=== PATIENT | female | born 1995 | race Caucasian/White ===

== ENCOUNTER 2018-10-28 23:07 | Emergency (ER) | payer MEDICAID ==
[~2018-10-28] VITALS: Ht 160 cm; Wt 79.4 kg
[2018-10-28 23:11] VITALS: Ht 160 cm; Wt 79.4 kg
--- NOTE | 2018-10-28 23:51 | ERD ---
ER Documentation Chief Complaint Chief Complaint PT reports 7 weeks and VB tonight HPI Patient is a 23-year-old female, G2, P1, approximately 7 weeks , presents the ER with vaginal spotting which started 1 hour ago. She denies any pad usage or clot passage. Patient states her [employer] PROFESSION[employer] is at [facility]. Last mental period was on August 08, 2018. Patient denies any dizziness or lightheadedness. Patient denies any fevers, chills, lower abdominal pain. ROS All systems reviewed and are negative except as per history of present illness. Allergies Allergies: Coded Allergies: No Known Allergy (Unverified , 10/28/18) PMhx/Soc History of Surgery: Yes () Hx Alcohol Use: No Hx Substance Use: No Hx Tobacco Use: No Smoking Status: Never smoker FmHx Family History: No diabetes Physical Exam Vitals Vital Signs Date Temp Pulse Resp B/P (MAP) Pulse Ox O2 O2 Flow FiO2 Time Delivery Rate 10/28/18 98.3 20 16 124/74 100 23:11 (91) Physical Exam GENERAL: Well-developed, well-nourished female. Appears in no acute distress. HEAD: Normocephalic, atraumatic. EYES: Pupils are equally reactive bilaterally. EOMs grossly intact. No conjunctival erythema. NECK: Supple. No meningismus. Normal range of motion of the neck. LUNG: Clear to auscultation bilaterally. No rhonchi, wheezing, rales or coarse breath sounds. HEART: Regular rate and rhythm. No murmurs, rubs or gallops. ABDOMEN: No scars, ecchymosis or rashes noted. Soft, nontender, and nondistended. Positive bowel sounds in all four quadrants. No rebound tenderne ss, no guarding. (-) McBurney's point tenderness. No CVA tenderness. EXTREMITIES: Equal pulses bilaterally. No peripheral clubbing, cyanosis or edema. No unilateral leg swelling. NEUROLOGIC: Alert and oriented. Moving all four extremities without any difficulty. Normal speech. Steady gait. SKIN: Normal color. Warm and dry. No rashes or lesions. Result Diagram: 10/28/18 2349 Results 24 hrs Laboratory Tests Test 10/28/18 23:49 White Blood Count 10.0 10^3/ul Red Blood Count 4.53 10^6/ul Hemoglobin 14.7 g/dl Hematocrit 42.4 % Mean Corpuscular Volume 93.6 fl Mean Corpuscular Hemoglobin 32.5 pg Mean Corpuscular Hemoglobin Concent 34.7 g/dl Red Cell Distribution Width 12.3 % Platelet Count 254 10^3/UL Mean Platelet Volume 11.4 fl Immature Granulocytes % 0.200 % Neutrophils % 64.6 % Lymphocytes % 26.8 % Monocytes % 5.9 % Eosinophils % 2.2 % Basophils % 0.3 % Nucleated Red Blood Cells % 0.0 /100WBC Immature Granulocytes # 0.020 10^3/ul Neutrophils # 6.5 10^3/ul Lymphocytes # 2.7 10^3/ul Monocytes # 0.6 10^3/ul Eosinophils # 0.2 10^3/ul Basophils # 0.0 10^3/ul Nucleated Red Blood Cells # 0.0 10^3/ul Urine Color YELLOW Urine Clarity SLIGHTLY CLOUDY Urine pH 6.0 Urine Specific [place] 1.004 Urine Ketones NEGATIVE mg/dL Urine Nitrite NEGATIVE mg/dL Urine Bilirubin NEGATIVE mg/dL Urine Urobilinogen NEGATIVE mg/dL Urine Leukocyte Esterase NEGATIVE Julia/ul Urine Microscopic RBC 10 /HPF Urine Microscopic WBC 2 /HPF Urine Squamous Epithelial Cells FEW /HPF Urine Amorphous Crystals FEW /HPF Urine Bacteria FEW /HPF Urine Hemoglobin 3+ mg/dL Urine Glucose NEGATIVE mg/dL Urine Total Protein NEGATIVE mg/dl Beta HCG, Quantitative 810698.0 mIU/ml Procedures/MDM ED COURSE: The patient was stable throughout ED course. I kept the patient and/or family informed of laboratory and diagnostic imaging results throughout the ED course. DIAGNOSTIC IMAGING: Read by radiologist. Patient: SAKSHI FUNES : 1995 Age: 23 Sex: F MR #: [id number] DOS: 10/28/18 2343 Ordering MD: ROSIE KO PA-C Location: [facility] Room/Bed: PROCEDURE: US OB. CLINICAL INDICATION: , vaginal spotting. TECHNIQUE: Multiple sonographic images of the pelvis were obtained. Transabdominal views of the pelvis are available for review. The images were reviewed on a PACS workstation. COMPARISON: No prior studies are available for comparison. FINDINGS: There is a single intrauterine . The mean gestational sac diameter measures 2.74 cm, corresponding to a 1-evnr-6-day . The crown-rump length equals 1.09 cm which corresponds to a 4-oosz-4-day gestational age by ultrasound criteria. cardiac activity measures 132 bpm. No subchorionic hemorrhage is identified. The ovaries are not visualized. The adnexa are unremarkable. There is no free pelvic fluid. IMPRESSION: Single live intrauterine gestation of approximately 7 weeks 3 days. The estimated date of delivery is 06/13/2019. RPTAT: HTAR .Antony Holloway MD, Date Time Electronically viewed and signed by .Antony Holloway MD, on 10/29/2018 01:58 .R/ CC: ROSIE KO PA-C [id number] PROCEDURES: None. Medical Decision Making: This is a 23-year-old female, G2, P1, approximately 7 weeks , presents the ER for concerns of vaginal spotting x1 hour. Vital signs were reviewed. Patient is afebrile. Patient is hemodynamically stable. Urine test was positive. Quantitative b-HCG was 202293. CBC showed no evidence of systemic infection or severe anemia. She was noted to be O+, no indication for RhoGam today. UA was negative for acute infection. Pelvic ultrasound showed intrauterine live gestation of 7 weeks 1 day. Given these findings, the patients presentation is most consistent with threatened . I have a much lower clinical concern for ectopic , ruptured ectopic , molar , subchorionic hematoma, spontaneous , incomplete , complete , missed , placental abruption, placental previa, vasa previa, uterine rupture, anembyronic . Prescriptions: None Discharge: At this time, patient is stable for discharge and outpatient management. I had a conversation at length with the patient about the concerns of vaginal bleeding during the 1st trimester of . Patient and/or family understands that her vaginal bleeding can be a normal finding or a sign of miscarriage. I have instructed the patient to follow-up with her OBGYN or return here 2 days for further monitoring. I have instructed the patient to promptly return to the ER a t any time for any new or worsening symptoms including increased pain, nausea, vomiting, continued bleeding, weakness, syncope or fever. The patient and/or family expressed understanding of and agreement with this plan. All questions were answered. Home care instructions were provided. Disclaimer: Inadvertent spelling and grammatical errors are likely due to EHR/dictation software use and do not reflect on the overall quality of patient care. Also, please note that the electronic time recorded on this note does not necessarily reflect the actual time of the patient encounter. Departure Diagnosis: Primary Impression: Vaginal bleeding affecting early Condition: Fair Patient Instructions: Vaginal Bleed in Referrals: [facility] YOU HAVE RECEIVED A MEDICAL SCREENING EXAM AND THE RESULTS INDICATE THAT YOU DO NOT HAVE A CONDITION THAT REQUIRES URGENT TREATMENT IN THE EMERGENCY DEPARTMENT. FURTHER EVALUATION AND TREATMENT OF YOUR CONDITION CAN WAIT UNTIL YOU ARE SEEN IN YOUR DOCTORS OFFICE WITHIN THE NEXT 1-2 DAYS. IT IS YOUR RESPONSIBILITY TO MAKE AN APPOINTMENT FOR FOLOW-UP CARE. IF YOU HAVE A PRIMARY DOCTOR --you should call your primary doctor and schedule an appointment IF YOU DO NOT HAVE A PRIMARY DOCTOR YOU CAN CALL OUR PHYSICIAN REFERRAL HOTLINE AT IF YOU CAN NOT AFFORD TO SEE A PHYSICIAN YOU CAN CHOSE FROM THE FOLLOWING [facility] [address] [facility]. [facility] [address] [facility]. [place] [address] [facility] [address]. [facility] [address] [facility]. [employer] [facility] [address] [facility]. [facility] YOU HAVE RECEIVED A MEDICAL SCREENING EXAM AND THE RESULTS INDICATE THAT YOU DO NOT HAVE A CONDITION THAT REQUIRES URGENT TREATMENT IN THE EMERGENCY DEPARTMENT. FURTHER EVALUATION AND TREATMENT OF YOUR CONDITION CAN WAIT UNTIL YOU ARE SEEN IN YOUR DOCTORS OFFICE WITHIN THE NEXT 1-2 DAYS. IT IS YOUR RESPONSIBILITY TO MAKE AN APPOINTMENT FOR FOLOW-UP CARE. IF YOU HAVE A PRIMARY DOCTOR --you should call your primary doctor and schedule and appointment IF YOU DO NOT HAVE A PRIMARY DOCTOR YOU CAN CALL OUR PHYSICIAN REFERRAL HOTLINE AT . IF YOU CAN NOT AFFORD TO SEE A PHYSICIAN YOU CAN CHOSE FROM THE FOLLOWING [facility] INSTITUTIONS: [facility] [address] [place] [address] [facility] [address] [place] [address] [facility] [address] [place] [address] [employer]AL [place] [address] [facility] [address] [place] [address] OFFICE FAX , [facility] [address] [place], [place] [id number], [place] [address] [place] [address] [address] MARCUM, [facility] [address] [id number] [address] [facility] [address] [place] [address] [facility] [address] [place] [address] [address] [facility] [address] - [address] [facility] [address] [address], [place] [address] [facility]. [address], [facility] [address] [address], [place] [address] [place], [place] [id number] Additional Instructions: Recheck ramirez hormonas en dos tripp. Llame al doctor MAANA y leni eloina AUSTYN PARA DENTRO DE 1-2 TRIPP.Dgale a la secretaria que nosotros le instruimos hacer esta austyn.Avise o llame si ramirez condicin se empeora antes de la austyn. Regresa aqui si peor o no mejor. ROSIE KO PA-C Oct 28, 2018 23:51
[2018-10-29 02:10] VITALS: BP 120/80; PULSE 79; RESP 16
== END 2018-10-29 02:10 | disposition home or self-care (01) ==
LOC: FTE 23:07
DX: O20.9 Hemorrhage in early pregnancy, unspecified (principal); Z3A.01 Less than 8 weeks gestation of pregnancy
CPT/HCPCS: 36415; 76801; 81001; 84702; 85025; 86900; 86901